=== PATIENT | female | born 1990 | race Caucasian/White ===

== ENCOUNTER 2018-01-18 05:05 | Inpatient (IN) | payer MEDICAID ==
[2018-01-18 06:21] LABS: ADD MAN DIFF? NO
[2018-01-18 06:26] LABS: BASOPHIL # 0.1 10^3/ul (0.0-0.1); BASOPHILS % 0.5 % (0.0-2.0); EOSINOPHILS # 0.6 10^3/ul (0.0-0.5); EOSINOPHILS % 6.4 % (0.0-7.0); HEMATOCRIT 33.7 % (37.0-47.0); HEMOGLOBIN 10.9 g/dl (12.0-16.0); LYMPHOCYTES # 1.4 10^3/ul (0.8-2.9); LYMPHOCYTES % 14.4 % (15.0-51.0); MEAN CORPUSCULAR HEMOGLOBIN 25.6 pg (29.0-33.0); MEAN CORPUSCULAR HGB CONC 32.3 g/dl (32.0-37.0); MEAN CORPUSCULAR VOLUME 79.1 fl (82.0-101.0); MEAN PLATELET VOLUME 12.6 fl (7.4-10.4); MONOCYTE # 0.6 10^3/ul (0.3-0.9); MONOCYTES % 6.5 % (0.0-11.0); NEUTROPHIL # 6.8 10^3/ul (1.6-7.5); PLATELET COUNT 158 10^3/UL (140-415); RED BLOOD COUNT 4.26 10^6/ul (4.20-5.40)
[2018-01-18 06:26] LABS: WHITE BLOOD COUNT 9.5 10^3/ul (4.8-10.8)
[2018-01-18] MEDS ORDERED: CARBOPROST 250 MCG INJ IM ×2 (06:30→11:30)
[2018-01-18] MEDS ORDERED: MISOPROSTOL 200 MCG TAB PR ×2 (06:30→11:30)
[2018-01-18] MEDS ORDERED: METHYLERGONOVINE 0.2 MG INJ IM ×2 (06:30→11:30)
[2018-01-18] MEDS ORDERED: OXYTOCIN 30 UNITS/LR 500 ML IV ×2 (06:30→11:30)
[2018-01-18] MEDS: LACTATED RINGER'S 1,000 ML IV ×3 (06:35→19:30)
[2018-01-18 06:44] LABS: ALANINE AMINOTRANSFERASE 16 IU/L (13-69); ALBUMIN 3.7 g/dl (3.3-4.9); ALBUMIN/GLOBULIN RATIO 1.05; ALKALINE PHOSPHATASE 206 IU/L (42-121); ANION GAP 14 (8-16); ASPARTATE AMINO TRANSFERASE 15 IU/L (15-46); BLOOD UREA NITROGEN 7 mg/dl (7-20); CALCIUM 9.3 mg/dl (8.4-10.2); CARBON DIOXIDE 23 mmol/L (21-31); CHLORIDE 107 mmol/L (97-110); GLUCOSE 88 mg/dl (70-220); POTASSIUM 3.9 mmol/L (3.5-5.1); SODIUM 140 mmol/L (135-144); TOTAL PROTEIN 7.2 g/dl (6.1-8.1)
[2018-01-18 06:52] LABS: INR 1.09; PROTIME 14.3 Sec (11.9-14.9); PT RATIO 1.1
[2018-01-18 06:53] LABS: PARTIAL THROMBOPLASTIN TIME 25.3 Sec (25.0-35.0)
[2018-01-18 06:58] LABS: ADD UMIC YES; UR ASCORBIC ACID NEGATIVE (NEGATIVE); UR BACTERIA FEW /HPF (NONE SEEN); UR BILIRUBIN (Dip) NEGATIVE (NEGATIVE); UR BLOOD (Dip) NEGATIVE (NEGATIVE); UR CLARITY SLIGHTLY CLOUDY (CLEAR); UR COLOR YELLOW (YELLOW); UR GLUCOSE (Dip) NEGATIVE (NEGATIVE); UR KETONES (Dip) NEGATIVE (NEGATIVE); UR LEUKOCYTE ESTERASE (Dip) 3+ Leu/ul (NEGATIVE); UR NITRITE (Dip) NEGATIVE (NEGATIVE); UR RBC 2 /HPF (0-5); UR SPECIFIC GRAVITY (Dip) 1.017 (1.003-1.030); UR SQUAMOUS EPITHELIAL CELL FEW /HPF (FEW); UR TOTAL PROTEIN (Dip) NEGATIVE (NEGATIVE); UR UROBILINOGEN (Dip) NEGATIVE (NEGATIVE); UR WBC 5 /HPF (0-5)
[2018-01-18] MEDS ORDERED: OXYTOCIN 30 UNITS/LR 500 ML BAG IV (07:00)
[2018-01-18 07:13] LABS: HEPATITIS B SURFACE ANTIGEN NEGATIVE (NEGATIVE)
[2018-01-18] MEDS ORDERED: morphine SULFATE/PF (10 MG/10 ML) INJ (07:22)
[2018-01-18] MEDS ORDERED: ONDANSETRON 4 MG INJ (07:22)
[2018-01-18] MEDS ORDERED: BUPIVACAINE 0.75%/DEXT (SPINAL) 2 ML INJ (07:22)
[2018-01-18] MEDS ORDERED: OXYTOCIN 10 UNIT INJ (07:22)
[2018-01-18] MEDS ORDERED: PHENYLephrine (100 MCG/ML) 5ML SYG (07:22)
[2018-01-18] MEDS ORDERED: METOCLOPRAMIDE 10 MG INJ (08:19)
[2018-01-18] MEDS: CEFAZOLIN 2 GM/50 ML (PMX) 50 ML IV (09:01)
[2018-01-18] MEDS: OXYTOCIN 30 UNITS/LR 500 ML IV ×3 (09:03→11:16)
[2018-01-18] MEDS: KETOROLAC 30 MG INJ IV (10:40)
[2018-01-18] MEDS ORDERED: MORPHINE XX (11:00)
[2018-01-18] MEDS ORDERED: ONDANSETRON 4 MG INJ IV (11:00)
[2018-01-18] MEDS ORDERED: NALOXONE (0.4 MG/ML) INJ IV (11:00)
[2018-01-18] MEDS ORDERED: [UNRECOGNIZED DRUG - OTHER] XX (11:00)
[2018-01-18] MEDS ORDERED: morphine 2 MG INJ IV (11:00)
[2018-01-18] MEDS ORDERED: DIPHENHYDRAMINE 50 MG INJ IV (11:00)
[2018-01-18] MEDS ORDERED: LANOLIN 7 GM TUBE TOP (11:30)
[2018-01-18] MEDS ORDERED: OXYCODONE/ACETAMINOPHEN (5/325) TAB PO (11:30)
[2018-01-18] MEDS: IBUPROFEN 800 MG TAB PO ×2 (14:00→22:00)
[2018-01-18 14:57] LABS: RAPID PLASMA REAGIN NONREACTIVE (NR)
[2018-01-18] MEDS: SENNA/DOCUSATE NA (8.6MG/50MG) TAB PO (22:01)
[2018-01-19] MEDS: KETOROLAC 30 MG INJ IV (00:54)
[2018-01-19] MEDS: LACTATED RINGER'S 1,000 ML IV ×2 (03:43→11:16)
[2018-01-19] MEDS: IBUPROFEN 800 MG TAB PO ×3 (06:00→22:00)
[2018-01-19] MEDS: SENNA/DOCUSATE NA (8.6MG/50MG) TAB PO ×2 (08:54→22:17)
[2018-01-19 09:26] LABS: ADD MAN DIFF? NO
[2018-01-19 09:29] LABS: BASOPHILS % 0.3 % (0.0-2.0); EOSINOPHILS # 0.6 10^3/ul (0.0-0.5); EOSINOPHILS % 3.8 % (0.0-7.0); HEMATOCRIT 30.8 % (37.0-47.0); HEMOGLOBIN 9.9 g/dl (12.0-16.0); LYMPHOCYTES # 1.1 10^3/ul (0.8-2.9); LYMPHOCYTES % 7.6 % (15.0-51.0); MEAN CORPUSCULAR HEMOGLOBIN 25.6 pg (29.0-33.0); MEAN CORPUSCULAR HGB CONC 32.1 g/dl (32.0-37.0); MEAN CORPUSCULAR VOLUME 79.6 fl (82.0-101.0); MEAN PLATELET VOLUME 12.5 fl (7.4-10.4); MONOCYTE # 0.8 10^3/ul (0.3-0.9); MONOCYTES % 5.7 % (0.0-11.0); NEUTROPHIL # 12.2 10^3/ul (1.6-7.5); NEUTROPHILS % 82.1 % (39.0-77.0); PLATELET COUNT 146 10^3/UL (140-415); RED BLOOD COUNT 3.87 10^6/ul (4.20-5.40); RED CELL DISTRIBUTION WIDTH 14.2 % (11.5-14.5)
[2018-01-19 09:29] LABS: WHITE BLOOD COUNT 14.8 10^3/ul (4.8-10.8)
[2018-01-19] MEDS: OXYCODONE/ACETAMINOPHEN (5/325) TAB PO (12:12)
[2018-01-20] MEDS: IBUPROFEN 800 MG TAB PO ×3 (06:00→21:53)
[2018-01-20] MEDS: SENNA/DOCUSATE NA (8.6MG/50MG) TAB PO ×2 (09:44→21:53)
[2018-01-20] MEDS: MAGNESIUM HYDROXIDE 30ML CUP PO (14:54)
[2018-01-21] MEDS: IBUPROFEN 800 MG TAB PO ×3 (06:15→14:16)
[2018-01-21] MEDS: DIPHTH/TET/ACEL PERTUSS (ADULT) 0.5 ML VIAL IM* (09:00)
[2018-01-21] MEDS: SENNA/DOCUSATE NA (8.6MG/50MG) TAB PO (10:28)
[2018-01-21] MEDS ORDERED: ACETAMINOPHEN 500 MG TAB PO (13:00)
[2018-01-21] MEDS: ONDANSETRON 4 MG TAB PO (13:26)
== END 2018-01-21 19:08 | disposition home or self-care (01) | DRG 766 ==
LOC: OBT 05:05 → L-D 05:05 → OBT 06:10 → L-D 06:10 → PP1 11:15
PROC: 10D00Z1 Extraction of Products of Conception, Low, Open Approach (ICD-10-PCS; principal; 2018-01-18 08:00)
PROC: 3E033VJ Introduction of Other Hormone into Peripheral Vein, Percutaneous Approach (ICD-10-PCS; 2018-01-18 08:00)
DX: O34.211 Maternal care for low transverse scar from previous cesarean delivery (principal); O99.213 Obesity complicating pregnancy, third trimester; E66.01 Morbid (severe) obesity due to excess calories; Z68.36 Body mass index [BMI] 36.0-36.9, adult; Z3A.38 38 weeks gestation of pregnancy; Z37.0 Single live birth
CPT/HCPCS: 36415; 80053; 81001; 85025; 85610; 85730; 86592; 86850; 86900; 86901; 87340; 94760; 99464